=== PATIENT | male | born 1950 | race Caucasian/White ===

== ENCOUNTER → 2019-01-20 13:10 | Outpatient (CLI) | payer OTHER, SELFPAY ==
--- NOTE | 2019-01-20 | DI.MRI.S_ITS ---
PROCEDURE: MR HEAD/BRAIN WO CON INDICATIONS: APHASIA TECHNIQUE: Noncontrast axial T1 spin echo, axial T2 fast spin echo, sagittal and axial FLAIR, coronal T2 fast spin echo, axial gradient echo, axial diffusion and ADC through the brain. COMPARISON: [facility], MR, BRAIN WITHOUT CONTRAST, 10/28/2016, 13:02. FINDINGS: Image quality: Excellent. CSF Spaces: Basal cisterns are patent. No extra-axial fluid collections. Ventricles are again noted to be asymmetric in size and shape with generalized enlargement of the cortical sulci and ventricles bilaterally but greater on the left than the right. Brain: No intracranial masses or hemorrhage. Oden/white matter interface is normal. Brainstem appears normal. Diffusion-weighted images demonstrate no acute ischemic insult. No chronic ischemic insults. Normal intravascular flow voids are present. Skull and face: Calvarium has normal marrow signal. Orbits appear normal. Sinuses: Sinuses and mastoids are clear. IMPRESSION: No acute or subacute stroke has developed. Prominent microvascular atherosclerotic change is again seen within the deep white matter of each hemisphere. Note is made of ventriculomegaly and cortical sulci enlargement bilaterally somewhat greater on the left than the right as has been previously the case. A mass lesion as cause of the asymmetry is not found. Dictated by: Samuel Castro M.D. on 01/20/2019 at 16:20 Approved by: Samuel Castro M.D. on 01/20/2019 at 16:23
== END ==
PROVIDERS: Visit Provider Psychiatry & Neurology Neurology
DX: R47.01 Aphasia (principal); G93.89 Other specified disorders of brain
CPT/HCPCS: 70551

== ENCOUNTER 2019-03-17 13:30 | Outpatient (RCR) | payer OTHER, SELFPAY ==
--- NOTE | 2019-01-23 16:32 | ST.IP.CME ---
Care Team Visit Care Team Role Provider Type Lachelle Espitia MD Attending Provider Non-Staff Specialty: Neurology Address: [address] [place] [address], [place], [address] Email: Current Diagnoses Aphasia (01/20/19) Speech-Language Pathology Cognitive Evaluation DOT NET DEVELOPER Cognitive/Memory Evaluation Start: 01/23/19 14:02 Freq: Status: Active Protocol: Document 01/20/19 14:04 LNK (Rec: 01/23/19 14:35 LNK [email or web address]) Evaluation of Cognition Session Time Visit Start Time 14:30 Visit Stop Time 15:15 Total Visit Minutes 45 Next Note Type Next Note Type Treatment Note Referral Referring Physician Dr. Espitia, Neorologist Reason for Referral Primary Progressive Aphasia Past Medical History Patient History Pt is a68 year old male who has been diagnosed with Primary Progressive Aphasia (). He is accompanied by by his Maria R who helps with providing pt's history. In [id number], the pt's daughter noticed changes in her father's speech and communication abilities. Currently the pt communicates via facial and body language as well as single word to short phrases. He reports having increased difficultly understanding. he presents with receptive and expressive aphasia as well as decreasing cognitive abilities. He continues to play his trumpet and enjoy music. Hearing Auditory History hearing appears to be WFL in a quiet setting. Educational Status Education Level MFA in Music Occupational Status Occupation Status retired Previous Therapy Previous Speech-Language Therapy No Oral Motor Examination Results Informal observation secondary to difficulty with comprehension of directives. OM structures appear to be WFL . Subjective Subjective pt and his live on [facility]. The were on time for the appointment. They are very pleasant people. - Informal Assessment Receptive Language Normal No Expressive Language Normal No Articulation Normal Yes Cognition Normal No Formal Assessment Standardized Test [facility] Mental Status Examination (UMS) Administration Complete Raw Score 11/23 Results 11/23 score represents dementia on the SLUMS. - Cognition Orientation Skill Level Severely Impaired Problem Solving/Reasoning/Judgment Skill Level Severely Impaired Divergent Naming Skill Level Severely Impaired Category Naming/Identification Skill Level Severely Impaired Sequencing Skill Level Severely Impaired Auditory Math Skill Level Severely Impaired Clock Drawing Skill Level Severely Impaired - Memory Short Term Memory Skill Level Severely Impaired Immediate Recall Skill Level Severely Impaired Word Recall Skill Level Severely Impaired Story Recall Skill Level Severely Impaired - Findings Cognitive/Memory Impressions The pt presented with severely impaired cognitive skills based on his score of 2/20 on the SLUMS The pt had difficulty with all test items with the exception of the day of the week and determining how much money he had spent on the store question. His response to how much did you spend? was written accurately. Other written attempts were unsuccessful with scribbling and frequent restarts and the pt giving up. He would appear to get frustrated and then quit the task. Other times he would perpetrate on his responses, accurate or not. Throughout the session, the pt would smile with a pleasant facial expression. He would only respond if he was asked a direct question. He would typically try to respond, but would ultimately say I don't know. Recommendations Recommendations Referral to a neuropsychologist is recommended. According to Maria R, the pt's , an appointment has been scheduled in the near future. Cognitive therapy was described to the pt's . 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 Living on [facility] and relying on the [employer] system is difficult as well as expensive, she noted. She stated she was hoping to get some direction in how to help her without formal therapy. Different cognitive therapy/ strategies and accommodations were discussed with the pt's : the use of written word choices and/or yes/no responses; setting up a communication center with a white board for important dates /appointments,etc.; possibly looking into AAC systems that may relieve the pt's frustration with communication . etc. Additionally, therapy options were presented such as home health, the possibility of caregivers (i.e., [facility] [place],etc.), scheduling sessions on a monthly schedule . Explanation of the benefits of therapy were discussed. The pt and his indicated they would give it some thought and call if they are interested in therapy. Treatment Goals Short Term Goals Pt will be referred to a Neuropsychologist for further assessment. Pt and his will explore options to provide the pt with therapy in order to assist him in memory skills, etc. Referrals Suggested Other Other Neuropsychology referral Total Time Full Evaluation Time 45
--- NOTE | 2019-01-23 18:11 | ST.OPIE ---
Provider Information Visit Care Team Role Provider Type Lachelle Espitia MD Attending Provider Non-Staff Specialty: Neurology Address: [address] [place] [address], [place], [address] Email: Speech-Language Pathology Initial Evaluation CHOPPER GUN OPERATOR Cognitive/Memory Evaluation Start: 01/23/19 14:02 Freq: Status: Active Protocol: Document 01/20/19 14:04 LNK (Rec: 01/23/19 14:35 LNK [email or web address]) Evaluation of Cognition Session Time Visit Start Time 14:30 Visit Stop Time 15:15 Total Visit Minutes 45 Next Note Type Next Note Type Treatment Note Referral Referring Physician Dr. Espitia, Neorologist Reason for Referral Primary Progressive Aphasia Past Medical History Patient History Pt is a68 year old male who has been diagnosed with Primary Progressive Aphasia (). He is acccompanied by by his Maria R who helps with providing pt's history. In [id number], the pt's daughter noticed changes in her father's speech and communication abilities. Currently the pt communicates via facial and body language as well as single word to short phrases. He reports having increased difficutly understanding. he presents withreceptive and exprrssive aphasia as well as decreasing cognitive abilities. He continues to play his trumpet and enjoy music. Hearing Auditory History hearing appears to be WFL in a quiet setting. Educational Status Education Level MFA in Music Occupational Status Occupation Status retired Previous Therapy Previous Speech-Language Therapy No Oral Motor Examination Results Informal observation secondary to difficulty with comprehension of directives. OM structures appear to be WFL . Subjective Subjective pt and his live on [facility]. The were on time for the appointment. They are very pleasant people. - Informal Assessment Receptive Language Normal No Expressive Language Normal No Articulation Normal Yes Cognition Normal No Formal Assessment Standardized Test [facility] Mental Status Examination (UMS) Administration Complete Raw Score 11/23 Results / score represents dementia on the SLUMS. - Cognition Orientation Skill Level Severely Impaired Problem Solving/Reasoning/Judgment Skill Level Severely Impaired Divergent Naming Skill Level Severely Impaired Category Naming/Identification Skill Level Severely Impaired Sequencing Skill Level Severely Impaired Auditory Math Skill Level Severely Impaired Clock Drawing Skill Level Severely Impaired - Memory Short Term Memory Skill Level Severely Impaired Immediate Recall Skill Level Severely Impaired Word Recall Skill Level Severely Impaired Story Recall Skill Level Severely Impaired - Findings Cognitive/Memory Impressions The pt presented with severely impaired cognitive skills based on his score of 2/20 on the SLUMS The pt had difficulty with all test items with the exception of the day of the week and determining how much money he had spent on the store question. His response to how much did you spend? was written accurately. Other written attempts were unsuccessful with scribbling and frequent restarts and the pt giving up. He would appear to get frustrated and then quit the task. Other times he would perseverate on his responses, accurate or not. Throughout the session, the pt would smile with a pleasant facial expression. He would only respond if he was asked a direct question. He would typically try to respond, but would ultimately say I don't know. Recommendations Recommendations Referral to a neuropsychologist is recommended. According to Maria R, the pt's , an appointment has been scheduled in the near future. Conitive therapy was described to the pt's . 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 Living on [facility] and relying on the [employer] system is difficult as well as expensive, she noted. She stated she was hoping to get some direction in how to help her without formal therapy. Different cognitive therapy/ strategies and accommodations were discussed withthe pt's : the use of written word choices and/or yes/no responses; setting up a communication center with a whiteboard for improtant dates /appointments,etc.; possibly looking into AAC systems that may relieve the pt's frustration with communication . etc. Additionally, therapy options were presented such as home health, the possibility of caregivers (i.e., [facility] [place],etc.), scheduling sessions on a monthly schedule . Explanation of the benefits of therapy were discussed. The pt and his indicated they would give it some thought and call if they are interested in therapy. Treatment Goals Short Term Goals Pt will be referred to a Neuropsychologist for further assessment. Pt and his will expolre options to provide the pt with therapy in order to assist him in memory skills, etc. Referrals Suggested Other Other Neuropsychology referral Total Time Full Evaluation Time 45 CHOPPER GUN OPERATOR Language Evaluation Start: 01/23/19 14:02 Freq: Status: Active Protocol: Document 01/20/19 16:34 LNK (Rec: 01/23/19 18:10 LNK [email or web address]) Language Evaluation Session Time Visit Start Time 15:11 Visit Stop Time 15:56 Total Visit Minutes 30 Next Note Type Next Note Type Treatment Note Past Medical History Patient History Pt is a68 year old male who has been diagnosed with Primary Progressive Aphasia (). He is accompanied by his Maria R who helps with providing pt's history. In [id number],the pt's daughter noticed changes in her father' s speech and communication abilities. Currently the pt communicates via facial and body language as well as single words to short phrases. He reports having increased difficultly understanding. He presents with receptive and expressive aphasia as well as decreasing cognitive abilities per report from neurologist. He continues to play his trumpet and enjoy music. Hearing Auditory History WFL Vision Vision Status Impaired Comments wears glasses Educational Status Education Level MFA music Occupational Status Occupation Status retired Previous Therapy Previous Speech-Language Therapy No Oral Motor Examination Results Informal observation indicated OM structures/function WFL Subjective Subjective pt was accompanied by Maria R, who provided pt's history - Informal Assessment Receptive Language Normal No Expressive Language Normal No Articulation Normal Yes Cognition Normal No Formal Assessment Standardized Test Priddy Naming Test Short Form Administration Complete Raw Score 3/15 correct Results The results of the assessment indicated significant word- finding difficulty. The pt correctly named 3/15 pictures. For 7/15 items, the pt was able to produce words that would be considered semantic paraphasias. That is, the words produced were not correct but they were within the same category/grouping as the target response (i.e., earthquake for the target word volcano or brush for comb, etc.). Additionally he was able to recognize the target word given a choice of 4 written words 5/15 opportunities. The semantic paraphasias as well as recognizing written words can be considered potential starting points for therapy to assist the pt in being able to communicate an idea/concept which could help others to understand him better. - Receptive Language Yes/No Questions Comments Pt's noted his Y/N answers are not always accurate. - Expressive Language - Recommendations Recommendations Aphasia therapy was described to the pt's . 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 Living on [facility] and relying on the [employer] system is difficult as well as expensive, she noted. She stated she was hoping to get some direction in how to help her without formal therapy Possible therapeutic strategies may include ;the use of written word choices and/or yes/no responses; setting up a communication center with a white board for important dates /appointments, etc., possibly looking into AAC systems that may relieve the pt's frustration with communication , etc. Additionally, therapy options were presented such as home health, the possibility of caregivers (i.e., [facility] [place],etc.), scheduling sessions on a monthly schedule . Explanation of the benefits of therapy were discussed. The pt and his indicated they would give it some thought and call if they are interested in therapy. Treatment Goals Short Term Goals Referral to neuropsychologist for further assessment. pt's indicated there was an appointment scheduled.
--- NOTE | 2019-02-14 17:08 | ST.OPTN ---
Care Team Visit Care Team Role Provider Type Lachelle Espitia MD Attending Provider Non-Staff Address: [address] [place] [address], [place], [address] DIGITAL SERVICE ENGINEER Treatment Note DIGITAL SERVICE ENGINEER Treatment Note Start: 01/23/19 14:02 Freq: Status: Active Protocol: Document 02/14/19 16:41 LNK (Rec: 02/14/19 16:58 LNK [id number]) Speech Pathology Treatment Note Session Time Visit Start Time 10:30 Visit Stop Time 11:25 Total Visit Minutes 55 Visit Information Visit Number 2 Setting Treatment Setting Outpatient Care Visit Type Note Type Treatment Note Next Note Type Next Note Type Treatment Note General Information General Information Pt is a 68 year old male who has been diagnosed with Primary Progressive Aphasia (). Currently the pt communicates via facial and body language as well as single words to short phrases. He reports having increased difficultly understanding. He presents with receptive and expressive aphasia as well as decreasing cognitive abilities per report from neurologist. He continues to play his trumpet and enjoy music. Communicative therapy was recommended. Therapeutic strategies discussed at the time of the assessment were: the use of written word choices and/or yes/no responses; setting up a communication center with a white board for important dates /appointments,etc., AAC systems that may relieve the pt's frustration with communication, etc. Monthly appointments were scheduled. Explanation of the benefits of therapy were discussed. Subjective Identification Type Name Identification Reconciled With Intake Sheet Others Present Family Chief Complaint(s) Cognitive Rehab Expectation/Goals: Patient Goals Ability to communicate to family. Rehab Expectation/Goals: Parent/Guardian Ability to communicate with /Jawbone Breaker Goals her Patient Knowledge/Awareness of DIGITAL SERVICE ENGINEER Role Excellent in Treatment Parent/Caretake Knowledge/Awareness of Excellent DIGITAL SERVICE ENGINEER Role in Treatment Objective Short Term Goals The family will report family will set up a picture book with written descriptions per picture to assist pt in recall /verbal expression. Exploration of AAC options to meet pt needs. Family education re: different options for communication including: gesture facial expression, use of alternative wording, pictures, written word options,etc. Plumber Pipe Fitting Goals The pt will be able to communicate with family members using a variety of communicative options as reported by family Assessment Patient Response to Treatment Good Rehab Potential Fair Impairments Identified Cognitive-Linguistic Skills Dementia Reviewed with Patient Home Exercise Program Patient/Caregiver Understanding Excellent Plan Amount of Therapy Recommended 1 Month Therapeutic Contents Cognitive-Linguistic Training Provided Patient/Caregiver Instruction Home Exercise Program Questions/Concerns Therapy Recommendations Continue with Current Program
--- NOTE | 2019-02-14 17:09 | ST.OPIE ---
Provider Information Visit Care Team Role Provider Type Lachelle Espitia MD Attending Provider Non-Staff Specialty: Neurology Address: [address] [place] [address], [place], [address] Email: Speech-Language Pathology Initial Evaluation CERTIFIED MARINE MECHANIC Cognitive/Memory Evaluation Start: 01/23/19 14:02 Freq: Status: Active Protocol: Document 01/20/19 14:04 LNK (Rec: 01/23/19 14:35 LNK [email or web address]) Evaluation of Cognition Session Time Visit Start Time 14:30 Visit Stop Time 15:15 Total Visit Minutes 45 Next Note Type Next Note Type Treatment Note Referral Referring Physician Dr. Espitia, Neorologist Reason for Referral Primary Progressive Aphasia Past Medical History Patient History Pt is a68 year old male who has been diagnosed with Primary Progressive Aphasia (). He is acccompanied by by his Maria R who helps with providing pt's history. In [id number], the pt's daughter noticed changes in her father's speech and communication abilities. Currently the pt communicates via facial and body language as well as single word to short phrases. He reports having increased difficutly understanding. he presents withreceptive and exprrssive aphasia as well as decreasing cognitive abilities. He continues to play his trumpet and enjoy music. Hearing Auditory History hearing appears to be WFL in a quiet setting. Educational Status Education Level MFA in Music Occupational Status Occupation Status retired Previous Therapy Previous Speech-Language Therapy No Oral Motor Examination Results Informal observation secondary to difficulty with comprehension of directives. OM structures appear to be WFL . Subjective Subjective pt and his live on [facility]. The were on time for the appointment. They are very pleasant people. - Informal Assessment Receptive Language Normal No Expressive Language Normal No Articulation Normal Yes Cognition Normal No Formal Assessment Standardized Test [facility] Mental Status Examination (UMS) Administration Complete Raw Score 11/23 Results / score represents dementia on the SLUMS. - Cognition Orientation Skill Level Severely Impaired Problem Solving/Reasoning/Judgment Skill Level Severely Impaired Divergent Naming Skill Level Severely Impaired Category Naming/Identification Skill Level Severely Impaired Sequencing Skill Level Severely Impaired Auditory Math Skill Level Severely Impaired Clock Drawing Skill Level Severely Impaired - Memory Short Term Memory Skill Level Severely Impaired Immediate Recall Skill Level Severely Impaired Word Recall Skill Level Severely Impaired Story Recall Skill Level Severely Impaired - Findings Cognitive/Memory Impressions The pt presented with severely impaired cognitive skills based on his score of 2/20 on the SLUMS The pt had difficulty with all test items with the exception of the day of the week and determining how much money he had spent on the store question. His response to how much did you spend? was written accurately. Other written attempts were unsuccessful with scribbling and frequent restarts and the pt giving up. He would appear to get frustrated and then quit the task. Other times he would perseverate on his responses, accurate or not. Throughout the session, the pt would smile with a pleasant facial expression. He would only respond if he was asked a direct question. He would typically try to respond, but would ultimately say I don't know. Recommendations Recommendations Referral to a neuropsychologist is recommended. According to Maria R, the pt's , an appointment has been scheduled in the near future. Conitive therapy was described to the pt's . 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 Living on [facility] and relying on the [employer] system is difficult as well as expensive, she noted. She stated she was hoping to get some direction in how to help her without formal therapy. Different cognitive therapy/ strategies and accommodations were discussed withthe pt's : the use of written word choices and/or yes/no responses; setting up a communication center with a whiteboard for improtant dates /appointments,etc.; possibly looking into AAC systems that may relieve the pt's frustration with communication . etc. Additionally, therapy options were presented such as home health, the possibility of caregivers (i.e., [facility],etc.), scheduling sessions on a monthly schedule . Explanation of the benefits of therapy were discussed. The pt and his indicated they would give it some thought and call if they are interested in therapy. Treatment Goals Short Term Goals Pt will be referred to a Neuropsychologist for further assessment. Pt and his will expolre options to provide the pt with therapy in order to assist him in memory skills, etc. Referrals Suggested Other Other Neuropsychology referral Total Time Full Evaluation Time 45 CERTIFIED MARINE MECHANIC Language Evaluation Start: 01/23/19 14:02 Freq: Status: Active Protocol: Document 01/20/19 16:34 LNK (Rec: 01/23/19 18:10 LNK [email or web address]) Language Evaluation Session Time Visit Start Time 15:11 Visit Stop Time 15:56 Total Visit Minutes 30 Next Note Type Next Note Type Treatment Note Past Medical History Patient History Pt is a68 year old male who has been diagnosed with Primary Progressive Aphasia (). He is accompanied by his Maria R who helps with providing pt's history. In [id number],the pt's daughter noticed changes in her father' s speech and communication abilities. Currently the pt communicates via facial and body language as well as single words to short phrases. He reports having increased difficultly understanding. He presents with receptive and expressive aphasia as well as decreasing cognitive abilities per report from neurologist. He continues to play his trumpet and enjoy music. Hearing Auditory History WFL Vision Vision Status Impaired Comments wears glasses Educational Status Education Level MFA music Occupational Status Occupation Status retired Previous Therapy Previous Speech-Language Therapy No Oral Motor Examination Results Informal observation indicated OM structures/function WFL Subjective Subjective pt was accompanied by Maria R, who provided pt's history - Informal Assessment Receptive Language Normal No Expressive Language Normal No Articulation Normal Yes Cognition Normal No Formal Assessment Standardized Test [place] Naming Test Short Form Administration Complete Raw Score 3/15 correct Results The results of the assessment indicated significant word- finding difficulty. The pt correctly named 3/15 pictures. For 7/15 items, the pt was able to produce words that would be considered semantic paraphasias. That is, the words produced were not correct but they were within the same category/groupng as the target response (i.e., eathquake for the target word volcano or brush for comb, etc.). Additionally he was able to recognize the target word given a choice of 4 written words 5/15 opportunities. The semantic paraphasis as well as recognizing written words can be considered potential starting points for therapy to assist the pt in being able to communicate an idea/concept which could help others to understand him better. - Receptive Language Yes/No Questions Comments Pt's noted his Y/N answers are not always accurate. - Expressive Language - Recommendations Recommendations Aphasia therapy was described to the pt's . 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 Living on [facility] and relying on the [employer] system is difficult as well as expensive, she noted. She stated she was hoping to get some direction in how to help her without formal therapy Possible therapeutic strategies may include ;the use of written word choices and/or yes/no responses; setting up a communication center with a white board for important dates /appointments, etc., possibly looking into AAC systems that may relieve the pt's frustration with communication , etc. Additionally, therapy options were presented such as home health, the possibility of caregivers (i.e., [facility] [employer],etc.), scheduling sessions on a monthly schedule . Explanation of the benefits of therapy were discussed. The pt and his indicated they would give it some thought and call if they are interested in therapy. Treatment Goals Short Term Goals Referral to neuropsychologist for further assessment. pt's indicated there was an appointment scheduled.
--- NOTE | 2019-03-17 14:42 | ST.OPTN ---
Care Team Visit Care Team Role Provider Type Lachelle Espitia MD Attending Provider Non-Staff Address: [address] [place] [address], [place], [address] KNOCKOUT WORKER Treatment Note KNOCKOUT WORKER Treatment Note Start: 01/23/19 14:02 Freq: Status: Active Protocol: Document 03/17/19 13:25 LNK (Rec: 03/17/19 13:28 LNK [email or web address]) Speech Pathology Treatment Note Session Time Visit Start Time 13:30 Visit Stop Time 14:25 Total Visit Minutes 45 Visit Information Visit Number 3 Plan of Care Dates 02/14/19-06/07/19 Setting Treatment Setting Outpatient Care Visit Type Note Type Treatment Note Next Note Type Next Note Type Treatment Note General Information General Information Pt is a 68 year old male who has been diagnosed with Primary Progressive Aphasia (). Currently the pt communicates via facial and body language as well as single words to short phrases. He reports having increased difficultly understanding. He presents with receptive and expressive aphasia as well as decreasing cognitive abilities per report from neurologist. He continues to play his trumpet and enjoy music. Communicative therapy was recommended. Therapeutic strategies discussed at the time of the assessment were: the use of written word choices and/or yes/no responses; setting up a communication center with a white board for important dates /appointments,etc., AAC systems that may relieve the pt's frustration with communication, etc. Monthly appointments were scheduled. Explanation of the benefits of therapy were discussed. Subjective Identification Type Name Identification Reconciled With Intake Sheet Others Present Family Observations/Patient Presentation Pt's was in attendance today. She stated that she feels that Oscar has declined since our last visit and may not be able to [place] in the [place]. Chief Complaint(s) Cognitive Rehab Expectation/Goals: Patient Goals Ability to communicate to family. Rehab Expectation/Goals: Parent/Guardian Ability to communicate with /Crop And Soil Technician Goals her Patient Knowledge/Awareness of KNOCKOUT WORKER Role Excellent in Treatment Parent/Caretake Knowledge/Awareness of Excellent KNOCKOUT WORKER Role in Treatment Patient/Caregiver Compliance with Home Good Exercise Program Objective Short Term Goals The family will report family will set up a picture book with written descriptions per picture to assist pt in recall /verbal expression. Exploration of AAC options to meet pt needs. Family education re: different options for communication including: gesture facial expression, use of alternative wording, pictures, written word options,etc. Jail Goals The pt will be able to communicate with family members using a variety of communicative options as reported by family Treatment Activities Continued with discusion with Oscar and Maria R regarding AAC options, recommending they investigate simple basic needs /ADL needs rather than an expensive complex program. Maria R is notw having difficulty with Oscar understanding verbal communication needing to have written/picture cues to show to Oscar for showering, going to bed, etc. Additionally, he is losing a sense of time, is unable to participate in conversation. Demonstration of language use with their family pictures was provided. Strategies taught included indirect questions, comment, providing options. As the pt is still able to access fci memory, these conversations should focus on those topics. Oscar was shown a simple AAC set up (<15 icons) and was able (with assistance) to put together 4 simple statements. Assessment Patient Response to Treatment Good Rehab Potential Fair Impairments Identified Cognitive-Linguistic Skills Dementia Assessment of Overall Progress Unchanged Reviewed with Patient Home Exercise Program Patient/Caregiver Understanding Excellent Plan Amount of Therapy Recommended 3-4 Months Comment 1 visit per month Length of Session 45 Minutes Treatment Emphasis Next Session communication/AAC Therapeutic Contents Cognitive-Linguistic Training Provided Patient/Caregiver Instruction Home Exercise Program Questions/Concerns Therapy Recommendations Continue with Current Program
--- NOTE | 2019-03-17 14:43 | ST.OPPOC ---
Care Team Visit Care Team Role Provider Type Lachelle Espitia MD Attending Provider Non-Staff Address: [address] [place] [address], [place], [address] Speech Pathology Plan of Care General Information Pt is a 68 year old male who has been diagnosed with Primary Progressive Aphasia (11/07/18). Currently the pt communicates via facial and body language as well as single words to short phrases. He reports having increased difficultly understanding. He presents with receptive and expressive aphasia as well as decreasing cognitive abilities per report from neurologist. He continues to play his trumpet and enjoy music. Communicative therapy was recommended. Therapeutic strategies discussed at the time of the assessment were: the use of written word choices and/or yes/no responses; setting up a communication center with a white board for important dates /appointments,etc., AAC systems that may relieve the pt's frustration with communication, etc. Monthly appointments were scheduled. Explanation of the benefits of therapy were discussed. Visit Number 3 Plan of Care Dates 02/14/19-06/07/19 Patient Comments Pt's was in attendance today. She stated that she feels that Oscar has declined since our last visit and may not be able [place]. Chief Complaint(s) Cognitive Rehabilitation Expectation/ Ability to communicate to family. Goals: Patient Goals Rehabilitation Expectation/ Ability to communicate with her Goals: Parent/Guardian/Family Patient Knowledge/Awareness of Excellent EMBOSSER OPERATOR Role in Treatment Parent/Caretake Knowledge/ Excellent Awareness of EMBOSSER OPERATOR Role in Treatment Patient/Caregiver Compliance Good with Home Exercise Program Short Term Goals The family will report family will set up a picture book with written descriptions per picture to assist pt in recall/verbal expression . Exploration of AAC options to meet pt needs. Family education re: different options for communication including: gesture facial expression, use of alternative wording, pictures , written word options,etc. Aircraft Pneudraulics Repairer Goals The pt will be able to communicate with family members using a variety of communicative options as reported by family Treatment Activities Continued with discusion with Oscar and Maria R regarding AAC options, recommending they investigate simple basic needs/ADL needs rather than an expensive complex program. Maria R is notw having difficulty with Oscar understanding verbal communication needing to have written/picture cues to show to Oscar for showering, going to bed, etc. Additionally, he is losing a sense of time, is unable to participate in conversation. Demonstration of language use with their family pictures was provided. Strategies taught included indirect questions, comment, providing options. As the pt is still able to access longterm memory, these conversations should focus on those topics. Oscar was shown a simple AAC set up (<15 icons) and was able (with assistance) to put together 4 simple statements. Rehabilitation Potential Fair Impairments Identified Cognition,Dementia Reviewed with Patient Home Exercise Program Patient Understanding Excellent Length of Therapy Recommended 3-4 Months Comment 1 visit per month Treatment Duration 45 Minutes Therapeutic Contents Cognitive-Linguistic Dru Patient Recommendations Continue with Current Pro Please Sign and Return: I have reviewed this Plan of Care and certify that the skilled therapy services above are required to meet the patient?s needs. Physician Signature Date Printed Name and Credentials Clinical Instructor Signature Printed Name and Credentials
--- NOTE | 2019-05-18 17:39 | ST.OPDS ---
Care Team Visit Care Team Role Provider Type Lachelle Espitia MD Attending Provider Non-Staff Address: [address] [place] [address], [place], [address] EDGER RUNNER Treatment Note EDGER RUNNER Treatment Note Start: 01/23/19 14:02 Freq: Status: Active Protocol: Document 05/18/19 17:33 LNK (Rec: 05/18/19 17:37 LNK [email or web address]) Speech Pathology Treatment Note Visit Type Note Type Discharge Summary General Information General Information Pt is a 68 year old male who has been diagnosed with Primary Progressive Aphasia (). Currently the pt communicates via facial and body language as well as single words to short phrases. He reports having increased difficultly understanding. He presents with receptive and expressive aphasia as well as decreasing cognitive abilities per report from neurologist. He continues to play his trumpet and enjoy music. Communicative therapy was recommended. Therapeutic strategies discussed at the time of the assessment were: the use of written word choices and/or yes/no responses; setting up a communication center with a white board for important dates /appointments,etc., AAC systems that may relieve the pt's frustration with communication, etc. Monthly appointments were scheduled. Explanation of the benefits of therapy were discussed. Subjective Chief Complaint(s) Cognitive Rehab Expectation/Goals: Parent/Guardian Ability to communicate with /Social Media Coordinator Goals her Objective Short Term Goals The family will report family will set up a picture book with written descriptions per picture to assist pt in recall /verbal expression. Exploration of AAC options to meet pt needs. Family education re: different options for communication including: gesture facial expression, use of alternative wording, pictures, written word options,etc. Treatment Activities The pt was seen for 2 therapy sessions. For each session, this EDGER RUNNER provided answers to questions the pt's had regarding ways to help her communicate. They were able to create a picture book nd did explore AAC. The pt has not been seen for therapy in 2 months. Will discharge at this point Assessment Assessment of Overall Progress Declining Unchanged Plan Amount of Therapy Recommended No Further Therapy Frequency of Treatment No Further Therapy Therapy Recommendations Discharge from Speech Therapy
== END 2019-05-23 16:40 | disposition home or self-care (01) ==
LOC: SP 13:30
PROVIDERS: Visit Provider Psychiatry & Neurology Neurology
DX: R47.01 Aphasia (principal)
CPT/HCPCS: 92507; 96105; 96125